=== PATIENT | male | born 1990 | race Caucasian/White ===

== ENCOUNTER 2023-05-21 11:34 | Outpatient (CLI) | payer OTHER, SELFPAY ==
[2023-05-21 13:54] LABS: Alanine Aminotransferase 60 U/L (6-50); Albumin Level 4.6 g/dL (3.5-5.1); Alkaline Phosphatase 61 U/L (38-126); Anion Gap 4 mmol/L (8-16); Aspartate Amino Transferase 45 U/L (17-59); Bilirubin,Total 0.8 mg/dL (0.2-1.3); Blood Urea Nitrogen 13 mg/dL (9-20); Calcium 9.5 mg/dL (8.4-10.2); Carbon Dioxide 32 mmol/L (22-30); Chloride 101 mmol/L (98-107); Estimated Glomerular Filt Rate > 60; Glucose 102 mg/dL (65-110); Potassium 4.7 mmol/L (3.4-5.0); Sodium 137 mmol/L (137-145)
== END 2023-05-21 11:35 | disposition home or self-care (01) ==
LOC: ANHGOSHLAB 11:36
PROVIDERS: PCP Emergency Medicine; Visit Provider Emergency Medicine
DX: R74.8 Abnormal levels of other serum enzymes (principal)
CPT/HCPCS: 36415; 80053

== ENCOUNTER 2023-09-01 08:40 | Emergency (ER) | payer BC, SELFPAY ==
[2023-09-01 08:52] VITALS: BP 151/78; PULSE 77; RESP 16; TEMP 37.1; O2SAT 99
--- NOTE | 2023-09-01 08:53 | ED.GENADULT ---
HPI - General Adult General Chief complaint: Urogenital-Male Stated complaint: hemorrhoid Time Seen by Provider: 09/01/23 08:53 Source: patient Mode of arrival: ambulatory Limitations: no limitations History of Present Illness HPI narrative: 33 yo M presents with painful hemorrhoid for 3 to 4 days. has been using OTC treatments, preparation H, tucks wipes, with no relief. Reports problems with hemorrhoids for approx. 3 years. Has never seen a specialist. Last thrombosed hemorrhoid was 2 years ago and was seen in a clinic in [place]. States only has 2 BMs a week sometimes, gets very constipated. 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 States hemorrhoid very painful, walking slowly in [facility] due to pain. All systems reviewed and negative except as noted above. Related Data Allergies Allergy/AdvReac Type Severity Reaction Status Date / Time No Known Allergies Allergy Unverified 09/01/23 08:44 Review of Systems Review of Systems: CONSTITUTIONAL: Denies fever, chills, or sweats. EYES: Denies visual changes, redness, or discharge. ENT: Denies rhinorrhea, congestion, sore throat, or otalgia. CARDIOVASCULAR: Denies chest pain, palpitations, or edema. RESPIRATORY: Denies cough or dyspnea. GASTROINTESTINAL: Denies abdominal pain, nausea, vomiting, or diarrhea. reports thrombosed hemorrhoid GENITOURINARY: Denies dysuria or hematuria. SKIN: Denies rash or itching. MUSCULOSKELETAL: Denies back pain, joint pain, or myalgia. NEUROLOGIC: Denies headache, numbness, or weakness. PSYCHIATRIC: Denies anxiety or depression. All other systems reviewed are negative, except as documented in HPI. [facility] Family History Family History Father Hypertension Mother Depression Grandparent Diabetes mellitus Heart disease Social History Social History Smoking status: Former smoker Smokeless tobacco user: chewing tobacco Second hand tobacco smoke exposure: No Smoking end date: 12/26/22 Alcohol intake: current Drinks per week: 4 Substance use: never Lack of Transportation: No Lack of Food: Never True Current Housing: I Have Housing Concerned About Future Housing: No Difficulty Paying Gas/Electric Bills: No Difficulty Paying for Meds: No Currently Unemployed: No Education: High School Diploma/GED Difficulty w/ Childcare or Family Care: No Comments At time of signature, agree with nursing past medical, surgical, social and family history. There is no relevant family history pertinent to the presenting complaint. Exam Narrative: GENERAL: This is a well-nourished, well-developed patient, in no apparent distress. HEAD: normocephalic, atraumatic. EYES: PERRL. Sclera clear/white. Vision is grossly intact. EARS: External ears normal NOSE: External nose normal NECK: Neck supple, non-tender without lymphadenopathy, masses or thyromegaly. CARDIOVASCULAR: Regular rate and rhythm without murmurs, gallops, or rubs. RESPIRATORY: Clear to auscultation. Breath sounds equal bilaterally. No wheezes, rales, or rhonchi. GASTROINTESTINAL: Abdomen soft, non-tender, nondistended. Bowel sounds are active. No hepato-splenomegaly, or palpable masses. No guarding. large tender external hemorrhoid noted, no active bleeding SKIN: warm, Dry, intact with no suspicious lesions or rash, good texture and turgor. NEURO: awake, alert, and oriented to person, place and time. There were no obvious focal neurologic abnormalities. EXTREMITIES: No joint tenderness, effusion, or edema noted. Course Course Level of Care: [facility] Visit Vital Signs Vital signs: Vital Signs Temperature 37.1 C 09/01/23 08:52 Pulse Rate 77 09/01/23 08:52 Respiratory Rate 16 09/01/23 08:52 Blood Pressure 151/78 H 09/01/23 08:52 Pulse Oximetry 99 09/01/23 08:52 Oxygen Delivery Room Air 09/01/23 08:52 Temperature 37
== END 2023-09-01 10:00 | disposition home or self-care (01) ==
PROVIDERS: Emergency Provider Nurse Practitioner Family; PCP Emergency Medicine
DX: K64.5 Perianal venous thrombosis (principal); Z87.891 Personal history of nicotine dependence
CPT/HCPCS: 99213; G0463

== ENCOUNTER 2023-09-04 00:17 | Day surgery (SDC) | payer BC, SELFPAY ==
[2023-09-03 13:47] VITALS: BMI 33.7
--- NOTE | 2023-09-03 13:52 | PC.NURSE ---
Report to the Outpatient Waiting Room, entrance under the green pavilion located off [facility], at time _0900_ on date _[id number]_. Planned Procedure Time: _1100_. Time changes happen often and if your time is changed the preop area will call you the afternoon before. - You and your visitor will be asked to self-screen and do not enter if you have any COVID symptoms. - A mask is optional within the hospital at this time. Patients may have clear liquids (water, carbonated beverages, clear teas, apple juice) until 3 hours prior to surgery with a maximum of 20 ounces. - No food from midnight until time of surgery Take the following medications with a SIP of water the morning of surgery: ___Pain medication if needed. DO NOT STOP ANY OF YOUR OTHER PRESCRIPTION MEDICATIONS PRIOR TO SURGERY ?EXCEPT THE FOLLOWING Medications to discontinue per physician None Date to take last dose Please no make-up, nail setswana, hairspray, perfume, deodorant, or body powder the day of surgery. No jewelry (including any body piercings) or valuables the day of surgery, leave them at home. Please take a shower or bath the night before, or the morning of, surgery with an antibacterial soap. Wear comfortable, loose fitting clothing. - Jewelry must be removed prior to entering the operating room. Rings and piercings that are not removed may be cut off. - The hospital will not accept responsibility for valuables. - Please leave all valuables, including medications, at home the day of surgery. If you are going home after surgery, a licensed milk truck driver must drive you home. - NO public transportation without another adult if you receive anesthesia. - We recommend that an adult stay with you for 24 hours following discharge. - We also recommend that you do not drive, make important decision, drink alcoholic beverages, or take any drugs that were not prescribed by your health care provider for at least 24 hours after your discharge time. Follow any additional instructions given to you from your surgeon. If you or anyone in your household have experienced Covid symptoms in the past week, please notify your surgeon or the nurse liaison at the phone number below for possible testing. Telephone instructions given to __Nate__and asked if any additional questions and then verbalized understanding. Patient advised to call surgeon office or pre surgery nurse liaison [phone] if any additional questions.
[2023-09-04] VITALS (7 sets, daily range): BP systolic 107–137; BP diastolic 56–82; PULSE 60–86; RESP 12–18; TEMP 36.1–37.1; O2SAT 97–100
[2023-09-04] MEDS: LACTATED RINGERS 1,000 ML 30 ML IV CONT (10:00)
--- NOTE | 2023-09-04 10:31 | WPDANESEPPF ---
Anes - Initial Pre Proc Eval Procedure: Operation Date: 09/04/23 11:00 Proposed Procedures p Rectal Examination Under Anesthesia, Excision Thrombosed External Hemorrhoids - Noemí Mitchell MD Date/Time: 09/04/23 10:31 Surgeon: Noemí Mitchell MD Pre Op Diagnosis: Thrombosed External Hemorrhoid Patient Data Age: 33 Gender: M Height: 1.85 m Weight: 115.9 kg Allergies Allergy/AdvReac Type Severity Reaction Status Date / Time No Known Allergies Allergy Verified 09/03/23 13:46 Home Medications Medication Instructions Recorded Confirmed Type docusate sodium 100 mg capsule 100 mg PO BID 60 days #120 caps 09/01/23 09/03/23 Rx (Colace) hydrocortisone acetate 25 mg 25 mg RECTAL TID 14 days #42 ea 09/01/23 09/03/23 Rx rectal suppository (Anusol-HC) hydrocodone 5 mg-acetaminophen 325 1 tablet PO Q6H PRN pain #30 tabs 09/02/23 09/03/23 Rx mg tablet Patient hx anesthesia problems: none Family hx anesthesia problems: none Results Review: All pre-operative results and documents have been reviewed as part of the pre-operative evaluation. [facility] Past Medical History Medical History (Updated 09/04/23 @ 10:31 by Gasper Martinez MD) Obesity Family History Family History Father Hypertension Mother Depression Grandparent Diabetes mellitus Heart disease Social History Social History Social History: Smoking status: Never smoker Smokeless tobacco user: chewing tobacco Second hand tobacco smoke exposure: No Smoking end date: 12/26/22 Alcohol intake: current Drinks per week: 3 Substance use: never Lack of Transportation: No Lack of Food: Never True Current Housing: I Have Housing Concerned About Future Housing: No Difficulty Paying Gas/Electric Bills: No Difficulty Paying for Meds: No Currently Unemployed: No Education: High School Diploma/GED Difficulty w/ Childcare or Family Care: No Living arrangements: alone Spiritual care concerns: No Anes - Eval Final PreProcedure Day of Procedure 09/04/23 10:31 Patient weight: obese Heart: regular rate and rhythm Lungs: clear to auscultation Airway: Mallampati scale class II Neurological: alert and oriented Last oral intake: >/= 8 hours ASA classification: II Emergent: no Anesthetic plan: proceed Anesthesia type and monitoring: general LMA and standard monitoring Results Review: All pre-operative results and documents have been reviewed as part of the pre-operative evaluation. Informed Consent: The patient's anesthetic plan and its attendant risks and benefits were discussed with the patient/family/POA. Questions were solicited and answers provided to the satisfaction of the patient/family/POA.
--- NOTE | 2023-09-04 11:00 | WPDHPUPDATE1 ---
History and Physical Update Update Date/Time: 09/04/23 11:00 History and Physical has been reviewed, including an updated exam of the patient. There are NO changes in the patient's condition. Risks, benefits, and alternatives have been discussed and questions answered. Patient agrees to proceed with procedure.
[2023-09-04] MEDS: ceFAZolin 2 GM/D5W 50 ML 2 GM/50 ML BAG IVPB (11:11)
[2023-09-04] MEDS: BUPIVACAINE/EPINEPHRINE 0.5% 50 ML VIAL 30 ML INFILTRATE (11:26)
[2023-09-04] MEDS: LIDOCAINE HCL 2% GEL UROJET 10 ML PKG MUCOUS MEM (11:27)
--- NOTE | 2023-09-04 11:51 | W.PM.PROC2 ---
Procedure Note - Detailed Date of Procedure 09/04/23 Pre-op Diagnosis Thrombosed External Hemorrhoids Post-op Diagnosis Same Procedure Performed Exam under anesthesia, external thrombosed hemorrhoidectomy involving left lateral and right anterior positions Surgeon Noemí Mitchell MD Anesthesia General Indications 33 y/o M c multiple thrombosed external hemorrhoids Findings multiple thrombosed external hemorrhoids predominately in L lateral and R anterior Description of Procedure The patient was taken to the operating room and placed in the modified lithotomy position. After adequate induction of general anesthesia, the patient was prepped and draped in the normal sterile fashion. A time-out was then done to verify the patient's identity, as well as the procedure being performed. I began by doing a digital exam. There was noted to be multiple thrombosed external hemorrhoids, however no internal hemorrhoids were noted. At this point, a bilateral pudendal block was done. Then used the lone Star retractor to further evaluate the anal canal as well as rectum, other than the thrombosed external hemorrhoids no other pathology was noted. I then began excising the external hemorrhoids using the hand-held LigaSure device. The thrombosed hemorrhoids were noted to be in the left lateral and right anterior positions. Multiple thrombosed hemorrhoids were excised using the LigaSure. The specimens will be sent to pathology for further review. Hemostasis was noted at all excision sites. I then placed a piece of Gelfoam covered with lidocaine jelly into the rectal vault. The patient tolerated the procedure and was extubated in the operating room postop. He will be transferred to the recovery room in stable condition. Implants Gelfoam covered with lidocaine jelly in the rectal vault Estimated Blood Loss 5 Drains No Packing Yes Pathology Yes Complications No immediate complications Condition Stable Disposition PACU [facility] Billing Surgery - Charge Forward: Surgery Billing
== END 2023-09-04 13:46 | disposition home or self-care (01) ==
PROVIDERS: PCP Emergency Medicine; Visit Provider Surgery
PROC: (CPT 46320; principal; 2023-09-04 11:00)
DX: K64.5 Perianal venous thrombosis (principal); Z87.891 Personal history of nicotine dependence; E66.9 Obesity, unspecified; Z68.34 Body mass index [BMI] 34.0-34.9, adult
CPT/HCPCS: 46320 ×2; 88304; A9270; J0690; J1100; J1885; J2001; J2250; J2405; J2704; J3010; J7120

== ENCOUNTER 2023-09-06 00:50 | Emergency (ER) | payer BC, SELFPAY ==
[2023-09-06 00:58] VITALS: BP 152/91; PULSE 66; RESP 16; TEMP 36.4; O2SAT 97
--- NOTE | 2023-09-06 02:35 | PC.NURSE ---
Patient ambulatory to intake desk and states he is going to leave and may return later.
== END 2023-09-06 02:51 | disposition left against medical advice (07) ==
PROVIDERS: Emergency Provider Emergency Medicine; PCP Emergency Medicine
DX: K59.00 Constipation, unspecified (principal)
CPT/HCPCS: 99199

== ENCOUNTER 2023-09-06 12:49 | Emergency (ER) | payer BC, SELFPAY ==
--- NOTE | ~2023-09-06 | XR_ITS ---
EXAMINATION: XR abdomen/kub 1V INDICATION: Constipation TECHNIQUE: Supine views of the abdomen were obtained on 2 radiographs. COMPARISON: None FINDINGS: A moderate volume of colonic stool is present. There are no dilated loops of bowel. There a re phleboliths of the pelvis. IMPRESSION: 1. Moderate volume of colonic stool. Reviewed, dictated and finalized at location [facility]. 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
[2023-09-06 13:01] VITALS: BP 142/86; PULSE 71; RESP 18; TEMP 36.4; O2SAT 99
--- NOTE | 2023-09-06 13:27 | ED.GENADULT ---
HPI - General Adult General Chief complaint: Unspecified Stated complaint: CONSTIPATION S/P HEMORRHOID SURGERY Time Seen by Provider: 09/06/23 13:27 Source: patient Mode of arrival: ambulatory Limitations: no limitations History of Present Illness HPI narrative: 33-year-old male presents with complaint no bowel movement for 5 days. Patient had hemorrhoidectomy on September [address] Mitchell. Patient states that he had a dissolvable packing placed to rectum. Patient reports that he has pressure to rectum like he needs to have a bowel movement. States every time he sits on toilet he has small amount bright red bleeding. Has been taking stool softener twice a day and milk magnesia a day. Has not called surgeon regarding constipation. All systems reviewed and negative except as noted above. Related Data Home Medications Medication Instructions Recorded Confirmed magnesium hydroxide 2,400 mg/10 mL PO 09/06/23 oral suspension (Milk Of Magnesia Concentrated) psyllium husk 0.4 gram capsule 0.4 g PO HS PRN Constipation 09/06/23 09/06/23 (Metamucil) Allergies Allergy/AdvReac Type Severity Reaction Status Date / Time No Known Allergies Allergy Verified 09/04/23 10:57 Review of Systems Review of Systems: CONSTITUTIONAL: Denies fever, chills, or sweats. EYES: Denies visual changes, redness, or discharge. ENT: Denies rhinorrhea, congestion, sore throat, or otalgia. CARDIOVASCULAR: Denies chest pain, palpitations, or edema. RESPIRATORY: Denies cough or dyspnea. GASTROINTESTINAL: Denies abdominal pain, nausea, vomiting, or diarrhea. Reports constipation. GENITOURINARY: Denies dysuria or hematuria. SKIN: Denies rash or itching. MUSCULOSKELETAL: Denies back pain, joint pain, or myalgia. NEUROLOGIC: Denies headache, numbness, or weakness. PSYCHIATRIC: Denies anxiety or depression. All other systems reviewed are negative, except as documented in HPI. [facility] Past Medical History Medical History (Updated 09/06/23 @ 14:33 by Lily Yuen NP) Obesity Family History Family History Father Hypertension Mother Depression Grandparent Diabetes mellitus Heart disease Social History Social History Social History: Smoking status: Never smoker Smokeless tobacco user: chewing tobacco Second hand tobacco smoke exposure: No Smoking end date: 12/26/22 Alcohol intake: current Drinks per week: 3 Substance use: never Lack of Transportation: No Lack of Food: Never True Current Housing: I Have Housing Concerned About Future Housing: No Difficulty Paying Gas/Electric Bills: No Difficulty Paying for Meds: No Currently Unemployed: No Education: High School Diploma/GED Difficulty w/ Childcare or Family Care: No Living arrangements: alone Spiritual care concerns: No Comments At time of signature, agree with nursing past medical, surgical, social and family history. There is no relevant family history pertinent to the presenting complaint. Exam Narrative: GENERAL: This is a well-nourished, well-developed patient, in no apparent distress. HEAD: normocephalic, atraumatic. EYES: PERRL. Sclera clear/white. Vision is grossly intact. EARS: External ears normal NOSE: External nose normal NECK: Neck supple, non-tender without lymphadenopathy, masses or thyromegaly. CARDIOVASCULAR: Regular rate and rhythm without murmurs, gallops, or rubs. RESPIRATORY: Clear to auscultation. Breath sounds equal bilaterally. No wheezes, rales, or rhonchi. GASTROINTESTINAL: Abdomen soft, non-tender, nondistended. Bowel sounds are hypo active. No hepato-splenomegaly, or palpable masses. No guarding. SKIN: warm, Dry, intact with no suspicious lesions or rash, good texture and turgor. NEURO: awake, alert, and oriented to person, place and time. There were no obvious focal neurologic abnor
== END 2023-09-06 14:37 | disposition home or self-care (01) ==
PROVIDERS: Emergency Provider Nurse Practitioner Family; PCP Emergency Medicine
DX: K59.00 Constipation, unspecified (principal); E66.9 Obesity, unspecified; Z68.33 Body mass index [BMI] 33.0-33.9, adult; Z87.891 Personal history of nicotine dependence
CPT/HCPCS: 74018; 99213; G0463

== ENCOUNTER 2023-09-07 13:00 | Emergency (ER) | payer BC, SELFPAY ==
--- NOTE | ~2023-09-07 | CT_ITS ---
CT of the Abdomen and Pelvis: Indication: Abdominal pain, rectal pain Technique: 2.5 mm axial scans were obtained through the abdomen and pelvis following intravenous adm inistration of 100 cc of Omnipaque 350. Dose reduction technique was used on this scan by utilizing a utomated exposure control and iterative reconstruction technique. The dose-length product (DLP) was 1 228.32 mGy-cm. Findings: Scans through the lung bases are unremarkable. The liver, spleen, pancreas, gallbladder, adrenals and kidneys are within normal limits. No evidence of aortic aneurysm. No lymphadenopathy. No bowel obstruction or bowel wall thickening. There is no evidence to suggest acute appendicitis. Images through the pelvis were performed. Urinary bladder unremarkable. Prostate gland and seminal ve sicles are unremarkable. Impression: No significant abnormalities seen. Reviewed, dictated and finalized at [facility]. 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
[2023-09-07 13:07] VITALS: BP 149/85; PULSE 92; RESP 16; TEMP 36.7; O2SAT 96
[2023-09-07 13:21] LABS: Basophils Percent Auto 0.6 % (0.2-1.2); Eosinophils Absolute Auto 0.4 K/mm3 (0-0.3); Eosinophils Percent Auto 5.4 % (0-4.4); Hematocrit 45.2 % (42.0-52.0); Hemoglobin 15.1 g/dL (14.0-18.0); Immature Granulocyte Absolute 0.01 K/mm3 (0.00-0.031); Immature Granulocyte Percent A 0.1 % (0-0.5); Lymphocytes Absolute Auto 1.52 K/mm3 (0.9-3.2); Lymphocytes Percent Auto 22.1 % (18.3-44.2); Mean Corpuscular HGB Conc 33.4 g/dl (32-36); Mean Corpuscular Hemoglobin 30.8 pg (26-34); Mean Corpuscular Volume 92.2 fl (80-100); Mean Platelet Volume 9.3 fl (7.4-10.4); Monocytes Absolute Auto 0.4 K/mm3 (0.1-0.6); Monocytes Percent Auto 6.1 % (2.6-8.5); Neutrophils Absolute Auto 4.5 K/mm3 (1.3-6.7); Neutrophils Percent Auto 65.7 % (45.5-73.1); Platelet Count Result 251 k/mm3 (150-375); White Blood Count 6.9 K/mm3 (4.5-10.0)
[2023-09-07 13:33] LABS: Alanine Aminotransferase 54 U/L (6-50); Albumin Level 4.1 g/dL (3.5-5.1); Alkaline Phosphatase 68 U/L (38-126); Anion Gap 7 mmol/L (8-16); Aspartate Amino Transferase 37 U/L (17-59); Bilirubin,Total 0.8 mg/dL (0.2-1.3); Blood Urea Nitrogen 13 mg/dL (9-20); Calcium 9.2 mg/dL (8.4-10.2); Carbon Dioxide 25 mmol/L (22-30); Chloride 104 mmol/L (98-107); Estimated CRCL calculation 121 ml/min; Estimated Glomerular Filt Rate > 60; Glucose 132 mg/dL (65-110); Sodium 136 mmol/L (137-145)
--- NOTE | 2023-09-07 14:26 | ED.GENADULT ---
HPI - General Adult General Chief complaint: Unspecified Stated complaint: rectal pain Time Seen by Provider: 09/07/23 14:17 Source: patient Mode of arrival: EMS Limitations: no limitations History of Present Illness HPI narrative: This is a 33 year old male that presents to the ER for rectal pain. Reports recent hemorrhoidectomy on 09/[address] Mitchell. Reports he has had worsening pain since. He has not been able to have a bowel movement. Reports bleeding and pain. He has been taking colace and mild of magnesia without relief. Reports some abdominal discomfort. Denies fever, vomiting. Related Data Home Medications Medication Instructions Recorded Confirmed magnesium hydroxide 2,400 mg/10 mL PO 09/06/23 oral suspension (Milk Of Magnesia Concentrated) psyllium husk 0.4 gram capsule 0.4 g PO HS PRN Constipation 09/06/23 09/06/23 (Metamucil) Allergies Allergy/AdvReac Type Severity Reaction Status Date / Time No Known Allergies Allergy Verified 09/04/23 10:57 Review of Systems Review of Systems: CONSTITUTIONAL: Denies fever GASTROINTESTINAL: Denies abdominal pain. Denies nausea, vomiting All systems reviewed & are unremarkable except as noted in HPI and below PMFSH Past Medical History Medical History (Updated 09/07/23 @ 16:35 by Slime Davis PA-C) History of hemorrhoids Obesity Family History Family History Father Hypertension Mother Depression Grandparent Diabetes mellitus Heart disease Social History Social History Social History: Smoking status: Never smoker Smokeless tobacco user: chewing tobacco Second hand tobacco smoke exposure: No Smoking end date: 12/26/22 Alcohol intake: current Drinks per week: 3 Substance use: never Lack of Transportation: No Lack of Food: Never True Current Housing: I Have Housing Concerned About Future Housing: No Difficulty Paying Gas/Electric Bills: No Difficulty Paying for Meds: No Currently Unemployed: No Education: High School Diploma/GED Difficulty w/ Childcare or Family Care: No Living arrangements: alone Spiritual care concerns: No Exam Narrative: GENERAL: Well-appearing, well-nourished, and in no acute distress. HEAD: Normocephalic, atraumatic. EYES: EOMI. CHEST: Clear to auscultation. No respiratory distress. No wheezes rales or rhonchi HEART: Regular rate and rhythm. No murmur heard. Normal peripheral pulses. ABDOMEN: Soft, nontender, nondistended, normal active bowel sounds. EXTREMITIES: Normal range of motion. No edema. SKIN: Warm, dry, no rash. NEURO: No focal deficits. Alert and oriented x3. PSYCH: Normal mood and affect RECTAL: Bright red blood in the rectal vault, without active bleeding Course Course Emergency Course: Patient updated on his workup. Would like to be discharged with further pain control outpatient Consultations Consultation #1: Spoke with Dr. Silver about patient and workup. Patient can be given option of admission for further pain control versus continued outpatient management. Date: 09/07/23 Vital Signs Vital signs: Vital Signs Temperature 98.0 F 09/07/23 13:07 Pulse Rate 92 09/07/23 13:07 Respiratory Rate 16 09/07/23 13:07 Blood Pressure 149/85 H 09/07/23 13:07 Pulse Oximetry 96 09/07/23 13:07 Temperature 98.0 F 09/07/23 13:07 Pulse Rate 80 09/07/23 14:46 Respiratory Rate 19 09/07/23 14:46 Blood Pressure 116/80 09/07/23 14:46 Pulse Oximetry 100 09/07/23 14:46 Medical Decision Making [facility] Narrative Medical decision making narrative: Patient presents to the ER for pain post hemorrhoidectomy. He is afebrile and nontoxic appearing. Vitals are stable. Patient with blood in rectal vault without active bleeding. CBC without leukocytosis. CT abdomen/pelvis without acute findings. Patient was updated o
[2023-09-07 14:46] VITALS: BP 116/80; PULSE 80; RESP 19; O2SAT 100
--- NOTE | 2023-09-07 15:11 | PC.NURSE ---
Pt to CT scan via stretcher at this time.
[2023-09-07] MEDS: HYDROcodone/acetaminophen (*CRX) 5-325 MG TABLET 1 TAB PO (16:24)
--- NOTE | 2023-09-07 17:01 | ED.GENADULT ---
HPI - General Adult General Chief complaint: Unspecified Stated complaint: rectal pain Time Seen by Provider: 09/07/23 14:17 Source: patient Mode of arrival: EMS Limitations: no limitations Related Data Home Medications Medication Instructions Recorded Confirmed magnesium hydroxide 2,400 mg/10 mL PO 09/06/23 oral suspension (Milk Of Magnesia Concentrated) psyllium husk 0.4 gram capsule 0.4 g PO HS PRN Constipation 09/06/23 09/06/23 (Metamucil) Allergies Allergy/AdvReac Type Severity Reaction Status Date / Time No Known Allergies Allergy Verified 09/04/23 10:57 [facility] Past Medical History Medical History (Updated 09/07/23 @ 16:35 by Slime Davis PA-C) History of hemorrhoids Obesity Family History Family History Father Hypertension Mother Depression Grandparent Diabetes mellitus Heart disease Social History Social History Social History: Smoking status: Never smoker Smokeless tobacco user: chewing tobacco Second hand tobacco smoke exposure: No Smoking end date: 12/26/22 Alcohol intake: current Drinks per week: 3 Substance use: never Lack of Transportation: No Lack of Food: Never True Current Housing: I Have Housing Concerned About Future Housing: No Difficulty Paying Gas/Electric Bills: No Difficulty Paying for Meds: No Currently Unemployed: No Education: High School Diploma/GED Difficulty w/ Childcare or Family Care: No Living arrangements: alone Spiritual care concerns: No Course Vital Signs Vital signs: Vital Signs Temperature 98.0 F 09/07/23 13:07 Pulse Rate 92 09/07/23 13:07 Respiratory Rate 16 09/07/23 13:07 Blood Pressure 149/85 H 09/07/23 13:07 Pulse Oximetry 96 09/07/23 13:07 Temperature 98.0 F 09/07/23 13:07 Pulse Rate 80 09/07/23 14:46 Respiratory Rate 19 09/07/23 14:46 Blood Pressure 116/80 09/07/23 14:46 Pulse Oximetry 100 09/07/23 14:46 Medical Decision Making Vital Signs Vital Signs: Vital Signs Temperature 98.0 F 09/07/23 13:07 Pulse Rate 92 09/07/23 13:07 Respiratory Rate 16 09/07/23 13:07 Blood Pressure 149/85 H 09/07/23 13:07 Pulse Oximetry 96 09/07/23 13:07 Temperature 98.0 F 09/07/23 13:07 Pulse Rate 80 09/07/23 14:46 Respiratory Rate 19 09/07/23 14:46 Blood Pressure 116/80 09/07/23 14:46 Pulse Oximetry 100 09/07/23 14:46 Lab Data 09/07/23 13:14 09/07/23 13:14 Labs: Lab Results 09/07/23 Range/Units 13:14 WBC 6.9 (4.5-10.0) K/mm3 RBC 4.90 (4.6-6.20) M/mm3 Hgb 15.1 (14.0-18.0) g/dL Hct 45.2 (42.0-52.0) % MCV 92.2 (80-100) fl MCH 30.8 (26-34) pg MCHC 33.4 (32-36) g/dl RDW 13.0 (11.5-14.5) % Plt Count 251 (150-375) k/mm3 MPV 9.3 (7.4-10.4) fl Immature Gran % (Auto) 0.1 (0-0.5) % Neut % (Auto) 65.7 (45.5-73.1) % Lymph % (Auto) 22.1 (18.3-44.2) % [place] % (Auto) 6.1 (2.6-8.5) % Eos % (Auto) 5.4 H (0-4.4) % Baso % (Auto) 0.6 (0.2-1.2) % Lymph # (Auto) 1.52 (0.9-3.2) K/mm3 [place] # (Auto) 0.4 (0.1-0.6) K/mm3 Eos # (Auto) 0.4 H (0-0.3) K/mm3 Baso # (Auto) 0.0 (0.0-0.1) K/mm3 Abs Immat Gran (auto) 0.01 (0.00-0.031) K/mm3 Absolute Neuts (auto) 4.5 (1.3-6.7) K/mm3 Absolute Nucleated RBC 0.0 (0.0-0.012) K/mm3 Nucleated RBC % 0.0 (0.0-0.2) % Sodium 136 L (137-145) mmol/L Potassium 4.0 (3.4-5.0) mmol/L Chloride 104 (98-107) mmol/L Carbon Dioxide 25 (22-30) mmol/L Anion Gap 7 L (8-16) mmol/L BUN 13 (9-20) mg/dL Creatinine 1.00 (0.7-1.3) mg/dL Estim Creat Clear Calc 121 ml/min Estimated GFR > 60 (59 - ) Glucose 132 H (65-110) mg/dL Calcium 9.2 (8.4-10.2) mg/dL Total Bilirubin 0.8 (0.2-1.3) mg/dL AST 37 (17-59) U/L ALT 54 H (6-50) U/L Alkaline Phosphatase 68 (38-126)
== END 2023-09-07 17:08 | disposition home or self-care (01) ==
PROVIDERS: Emergency Medicine; Emergency Provider Physician Assistant; PCP Emergency Medicine
DX: K62.89 Other specified diseases of anus and rectum (principal); E66.9 Obesity, unspecified; Z68.33 Body mass index [BMI] 33.0-33.9, adult
CPT/HCPCS: 36415; 74177; 80053; 85025; 99284; A9270; Q9967